=== PATIENT | female | born 1950 | race Two or more races ===

== ENCOUNTER 2023-03-12 11:43 | Emergency (ER) | payer OTHER ==
[~2023-03-12] VITALS: Ht 160 cm; Wt 63.5 kg
[2023-03-12] MEDS ORDERED: CYCLOBENZAPRINE10 MG (12:03)
[2023-03-12] MEDS ORDERED: SULINDAC150 MG (12:04)
[2023-03-12] MEDS ORDERED: METOPROLOL SUCC50 MG (12:04)
[2023-03-12] MEDS ORDERED: HYDROXYZINE PAM25 MG (12:05)
[2023-03-12] MEDS ORDERED: SERTRALINE HCL50 MG (12:05)
[2023-03-12] MEDS ORDERED: ROSUVASTATIN CA10 MG (12:05)
[2023-03-12] MEDS ORDERED: TRAMADOL HCL E100 M1 (12:06)
[2023-03-12] MEDS ORDERED: CELEBREX200MG PO (12:53)
== END 2023-03-12 13:02 | disposition home or self-care (01) ==
LOC: ER 11:43
DX: M54.89 Other dorsalgia (principal)